=== PATIENT | female | born 1955 | race Caucasian/White ===

== ENCOUNTER 2016-06-11 10:06 | Emergency (ER) | payer OTHER ==
[~2016-06-11] VITALS: Ht 160 cm; Wt 69.0 kg
[~2016-06-11 10:06] MED LIST: MULTCHW27 PO; ZANTTAB9 PO
[2016-06-11 10:07] VITALS: BP 139/69; PULSE 90; RESP 20; TEMP 98; O2SAT 98
[2016-06-11] MEDS ORDERED: SODIUM CHLOR 0.9% 1000 ML INJ 1,000 ML IV SCH (10:37)
[2016-06-11] MEDS ORDERED: ZANT150T2 PO (10:38)
[2016-06-11 10:40] VITALS: RESP 17; O2SAT 99
--- NOTE | 2016-06-11 10:41 | PD ---
HPI Chief Complaint: abdominal pain Time Seen by Provider: 10:29 Travel History International Travel<30 days: No Contact w/Intl Traveler<30days: No Traveled to known affect area: No History of Present Illness HPI The patient is a 61-year-old female who presents emergency department for epigastric abdominal pain. The patient complains of epigastric abdominal pain and occasional abdominal distention that radiates to the back for the last several weeks. However, the patient states her pain never fully dissipates and has been progressing over the last week. The patient was evaluated at [facility] earlier today and referred to the emergency department for further evaluation of possible AAA. The patient does have a history of previous gastritis with several endoscopies performed approximately 10 years ago. The patient was placed on omeprazole and then had her omeprazole doubled at that time, however, her symptoms worsen. The patient was then seen by a general surgeon, Dr. Kwame Chapin, who took her off the map resolved place her on Zantac. The patient states her symptoms resolved after approximately one week, after the medication change. However, the last several weeks she is once again developed epigastric abdominal pain is burning, radiating to the back, occasionally is associated with abdominal distention. She also notes a decreased appetite secondary to the pain. The patient denies any upper chest pain, shortness of breath, nausea, or vomiting. The patient states she walks 5 miles on a treadmill yesterday without any progression of her symptoms and denies any exertional symptoms. The patient states food does not alleviate or exacerbate her symptoms. The patient's primary physician is Dr. Morin. PFSH Past Medical History Asthma: No Blood Disorders: No Anxiety: No Depression: No Heart Rhythm Problems: No Cancer: No Cardiovascular Problems: No High Cholesterol: No Chemotherapy: No Chest Pain: No Congestive Heart Failure: No COPD: No Diabetes: No Endocrine: No Genitourinary: No Hepatitis: No Hiatal Hernia: No Immune Disorder: No Musculoskeletal: No Neurologic: No Psychiatric: No Reproductive: No Respiratory: No Radiation Therapy: No Sleep Apnea: No Thyroid Disease: No Past Surgical History AICD: No Eye Surgery: Yes (BILATERAL CATARACT) Gynecologic Surgery: Yes (CONIZATION OF CERVIX) Joint Replacement: No Pacemaker: No Social History Tobacco Use: No Substance Use: No Allergies-Medications (Allergen,Severity, Reaction): Coded Allergies: Omeprazole (Verified Adverse Reaction, Unknown, ABDOMINAL PAIN, 06/11/16) Reported Meds & Prescriptions Reported Meds & Active Scripts Active Reported Zantac (Ranitidine HCl) 150 Mg Tab 75 Mg PO DAILY Review of Systems Except as stated in HPI: all other systems reviewed are Neg General / Constitutional: No: Fever Cardiovascular: No: Chest Pain or Discomfort, Dyspnea on exertion Respiratory: No: Shortness of Breath Gastrointestinal: Positive: Abdominal Pain, Loss of Appetite, No: Nausea, Vomiting, Diarrhea Musculoskeletal: No: Weakness Physical Exam Narrative GENERAL: Awake, alert, pleasant 81-year-old female who appears her stated age and is in no acute respiratory distress. SKIN: Warm and dry. HEAD: Atraumatic. Normocephalic. EYES: Pupils equal and round. No scleral icterus. No injection or drainage. ENT: No nasal bleeding or discharge. Mucous membranes pink and moist. NECK: Trachea midline. No JVD. CARDIOVASCULAR: Regular rate and rhythm. No murmur appreciated. RESPIRATORY: No accessory muscle use. Clear to auscultation. Breath sounds equal bilaterally. GASTROINTESTINAL: Abdomen soft, tender to palpation epigastrium and right upper quadrant. No rebound tenderness, guarding, or rigidity. MUSCULOSKELETAL: No obvious deformities. No clubbing. No cyanosis. No edema. NEUROLOGICAL: Awake and alert. No obvious cranial nerve deficits. Motor grossly within normal limits. Normal speech. PSYCHIATRIC: Appropriate mood and affect; insight and judgment normal. Data Data Last Documented VS Vital Signs Date Time Temp Pulse Resp B/P Pulse Ox O2 Delivery O2 Flow Rate FiO2 06/11/16 11:50 72 16 133/67 99 Room Air 06/11/16 10:07 98.0 Orders Electrocardiogram (06/11/16 ) Complete Blood Count With Diff (06/11/16 10:37) Comprehensive Metabolic Panel (06/11/16 10:37) Lipase (06/11/16 10:37) Ct Abd/Pel W Iv Contrast(Rout) (06/11/16 10:37) Iv Access Insert/Monitor (06/11/16 10:37) Ecg Monitoring (06/11/16 10:37) Oximetry (06/11/16 10:37) Morphine Inj (Morphine Inj) (06/11/16 10:45) Ondansetron Inj (Zofran Inj) (06/11/16 10:45) Sodium Chlor 0.9% 1000 Ml Inj (Ns 1000 M (06/11/16 10:37) Sodium Chloride 0.9% Flush (Ns Flush) (06/11/16 10:45) Famotidine Inj (Pepcid Inj) (06/11/16 10:45) Troponin I (06/11/16 10:41) Creatine Kinase (Cpk) (06/11/16 10:41) Iohexol 350 Inj (Omnipaque 350 Inj) (06/11/16 13:04) Labs Laboratory Tests Test 06/11/16 10:45 White Blood Count 4.2 TH/MM3 Red Blood Count 4.55 MIL/MM3 Hemoglobin 13.7 GM/DL Hematocrit 41.1 % Mean Corpuscular Volume 90.4 FL Mean Corpuscular Hemoglobin 30.2 PG Mean Corpuscular Hemoglobin 33.4 % Concent Red Cell Distribution Width 14.1 % Platelet Count 166 TH/MM3 Mean Platelet Volume 10.6 FL Neutrophils (%) (Auto) 71.6 % Lymphocytes (%) (Auto) 16.8 % Monocytes (%) (Auto) 10.4 % Eosinophils (%) (Auto) 0.6 % Basophils (%) (Auto) 0.6 % Neutrophils # (Auto) 3.0 TH/MM3 Lymphocytes # (Auto) 0.7 TH/MM3 Monocytes # (Auto) 0.4 TH/MM3 Eosinophils # (Auto) 0.0 TH/MM3 Basophils # (Auto) 0.0 TH/MM3 CBC Comment DIFF FINAL Differential Comment Sodium Level 139 MEQ/L Potassium Level 3.8 MEQ/L Chloride Level 102 MEQ/L Carbon Dioxide Level 28.6 MEQ/L Anion Gap 8 MEQ/L Blood Urea Nitrogen 13 MG/DL Creatinine 0.65 MG/DL Estimat Glomerular Filtration 93 ML/MIN Rate Random Glucose 92 MG/DL Calcium Level 8.9 MG/DL Total Bilirubin 0.3 MG/DL Aspartate Amino Transf 22 U/L (AST/SGOT) Alanine Aminotransferase 21 U/L (ALT/SGPT) Alkaline Phosphatase 79 U/L Total Creatine Kinase 60 U/L Troponin I LESS THAN 0.02 NG/ML Total Protein 7.7 GM/DL Albumin 3.6 GM/DL Lipase 171 U/L [facility] Medical Decision Making Medical Screen Exam Complete: Yes Emergency Medical Condition: Yes Medical Record Reviewed: Yes Interpretation(s) EKG reveals normal sinus rhythm with a rate of 79. No ischemic changes or ectopy noted. Laboratory Tests Test 06/11/16 10:45 White Blood Count 4.2 TH/MM3 Red Blood Count 4.55 MIL/MM3 Hemoglobin 13.7 GM/DL Hematocrit 41.1 % Mean Corpuscular Volume 90.4 FL Mean Corpuscular Hemoglobin 30.2 PG Mean Corpuscular Hemoglobin 33.4 % Concent Red Cell Distribution Width 14.1 % Platelet Count 166 TH/MM3 Mean Platelet Volume 10.6 FL Neutrophils (%) (Auto) 71.6 % Lymphocytes (%) (Auto) 16.8 % Monocytes (%) (Auto) 10.4 % Eosinophils (%) (Auto) 0.6 % Basophils (%) (Auto) 0.6 % Neutrophils # (Auto) 3.0 TH/MM3 Lymphocytes # (Auto) 0.7 TH/MM3 Monocytes # (Auto) 0.4 TH/MM3 Eosinophils # (Auto) 0.0 TH/MM3 Basophils # (Auto) 0.0 TH/MM3 CBC Comment DIFF FINAL Differential Comment Sodium Level 139 MEQ/L Potassium Level 3.8 MEQ/L Chloride Level 102 MEQ/L Carbon Dioxide Level 28.6 MEQ/L Anion Gap 8 MEQ/L Blood Urea Nitrogen 13 MG/DL Creatinine 0.65 MG/DL Estimat Glomerular Filtration 93 ML/MIN Rate Random Glucose 92 MG/DL Calcium Level 8.9 MG/DL Total Bilirubin 0.3 MG/DL Aspartate Amino Transf 22 U/L (AST/SGOT) Alanine Aminotransferase 21 U/L (ALT/SGPT) Alkaline Phosphatase 79 U/L Total Creatine Kinase 60 U/L Troponin I LESS THAN 0.02 NG/ML Total Protein 7.7 GM/DL Albumin 3.6 GM/DL Lipase 171 U/L Last Impressions Abdomen/Pelvis CT 06/11/16 1037 Signed Impressions: Service Date/Time: Saturday, June 11, 2016 12:48 - CONCLUSION: 1. Multiple low-density lesions throughout the liver, likely benign. Outpatient followup MRI recommended. 2. No acute inflammatory process. Fabio Mota MD Differential Diagnosis Differential diagnosis includes cholecystitis, biliary colic, choledocholithiasis, pancreatitis, gastritis, peptic ulcer disease, AAA, atypical chest pain. Narrative Course IV was established, labs were drawn and sent, and the patient was placed on cardiac telemetry monitoring and continuous pulse oximetry monitoring. EKG was ordered and interpreted. CT of the abdomen and pelvis with IV contrast was ordered to evaluate for possible AAA and gallbladder-related pathology. The patient was administered morphine, Pepcid, Zofran, and IV fluids. The patient' s laboratory evaluation including LFTs, BUN/creatinine, and lipase are unremarkable. Hemoglobin is within normal limits. Troponin is CPK are negative. CT reveals lesions in the liver, most likely benign, gallbladder reveals no gallstones or gallbladder wall thickening. No evidence of AAA. The patient had adverse reaction omeprazole, is willing to try Protonix. Therefore , patient was administered 1 dose of Protonix and be discharged home on Protonix. She is advised to follow-up with her adjunct sociology professor for outpatient endoscopy to evaluate for peptic ulcer disease. Patient is also advised she has lesions in the liver may benefit from outpatient MRI. The patient will be provided a copy of her labs and CT at discharge and follow-up with her primary physician. She is advised to return if symptoms worsen or progress. Diagnosis Primary Impression: Epigastric abdominal pain of unknown etiology Patient Instructions: General Instructions Additional Instructions: Protonix as directed. Follow-up with your primary physician. Return if symptoms worsen or progress. Follow-up with your adjunct sociology professor for possible outpatient endoscopy. Please provide the patient a copy of her CT results and lab results at discharge. Med/Other Pt SpecificInfo: Prescription(s) given Scripts Pantoprazole (Protonix)40 Mg Tab40 Mg PO DAILY #30 TAB Ref 0 Prov:Jason Prabhakar MD 06/11/16 Disposition: 01 DISCHARGE HOME Condition: Stable Jason Prabhakar MD Jun 11, 2016 10:41
[2016-06-11] MEDS ORDERED: FAMOTIDINE 20 MG/2 ML VIAL IV PUSH ONE (10:45)
[2016-06-11] MEDS ORDERED: ONDANSETRON HCL 4 MG/2 ML VIAL IVP ONE (10:45)
[2016-06-11] MEDS ORDERED: SODIUM CHLORIDE 0.9% FLUSH 5 ML FLUSH IVF PRN (10:45)
[2016-06-11] MEDS ORDERED: MORPHINE SULFATE 4 MG/ML INJ IV PUSH ONE (10:45)
[2016-06-11 10:50] VITALS: BP 130/63; PULSE 81; RESP 17; O2SAT 99
[2016-06-11 11:05] LABS: BASOPHIL % 0.6 % (0.0-2.0); EOSINOPHIL % 0.6 % (0.0-4.0); HEMATOCRIT 41.1 % (35.0-46.0); HEMO FLAGS DIFF FINAL; LYMPH % 16.8 % (9.0-44.0); LYMPHOCYTE # 0.7 TH/MM3 (1.0-4.8); MEAN CELL VOLUME 90.4 FL (80.0-100.0); MEAN CORPUSCULAR HEMOGLOBIN 30.2 PG (27.0-34.0); MEAN CORPUSCULAR HGB CONC 33.4 % (32.0-36.0); MONO % 10.4 % (0.0-8.0); NEUT % 71.6 % (16.0-70.0); PLATELET COUNT 166 TH/MM3 (150-450); RED BLOOD COUNT 4.55 MIL/MM3 (4.00-5.30); RED CELL DISTRIBUTION WIDTH 14.1 % (11.6-17.2); WHITE BLOOD COUNT 4.2 TH/MM3 (4.0-11.0)
[2016-06-11 11:25] LABS: CREATINE KINASE 60 U/L (26-192)
[2016-06-11 11:50] VITALS: BP 133/67; PULSE 72; RESP 16; O2SAT 99
[2016-06-11 11:53] LABS: ALT (GPT) 21 U/L (10-53); ANION GAP 8 MEQ/L (5-15); AST (GOT) 22 U/L (15-37); BICARBONATE 28.6 MEQ/L (21.0-32.0); BLOOD UREA NITROGEN 13 MG/DL (7-18); CHLORIDE 102 MEQ/L (98-107); GLOMERULAR FILTRATION RATE 93 ML/MIN (>89); POTASSIUM 3.8 MEQ/L (3.5-5.1); SODIUM (NA) 139 MEQ/L (136-145)
[2016-06-11 11:55] LABS: ALKALINE PHOSPHATASE 79 U/L (45-117); TOTAL BILIRUBIN ADULT 0.3 MG/DL (0.2-1.0)
[2016-06-11] MEDS ORDERED: IOHEXOL 350 MG/ML 10 ML VIAL (for RAD DIAG) IV ONE (13:04)
--- NOTE | 2016-06-11 13:15 | RADRPT ---
EXAM DATE/TIME: 06/11/2016 12:48 [facility] COMPARISON: No previous studies available for comparison. INDICATIONS : Epigastric and right upper quadrant pain. IV CONTRAST: 95 cc Omnipaque 350 (iohexol) IV ORAL CONTRAST: No oral contrast ingested. RADIATION DOSE: 7.72 CTDIvol (mGy) MEDICAL HISTORY : None SURGICAL HISTORY : Hysterectomy. ENCOUNTER: Initial ACUITY: 2 days PAIN SCALE: 6/10 LOCATION: Right upper quadrant TECHNIQUE: Volumetric scanning of the abdomen and pelvis was performed. Using automated exposure control and ad justment of the mA and/or kV according to patient size, radiation dose was kept as low as reasonably achievable to obtain optimal diagnostic quality images. FINDINGS: LOWER LUNGS: The visualized lower lungs are clear. LIVER: Homogeneous density without dilation of the biliary tree. No calcified gallstones. Multiple low-dens ity lesions. SPLEEN: Normal size without lesion. PANCREAS: Within normal limits. KIDNEYS: Normal in size and shape. There is no mass, stone or hydronephrosis. ADRENAL GLANDS: Within normal limits. VASCULAR: There is no aortic aneurysm. BOWEL/MESENTERY: The stomach, small bowel, and colon demonstrate no acute abnormality. There is no free intraperitone al air or fluid. ABDOMINAL WALL: Within normal limits. RETROPERITONEUM: There is no lymphadenopathy. BLADDER: No wall thickening or mass. REPRODUCTIVE: Within normal limits. INGUINAL: There is no lymphadenopathy or hernia. MUSCULOSKELETAL: Within normal limits for patient age. CONCLUSION: 1. Multiple low-density lesions throughout the liver, likely benign. Outpatient followup MRI recommen ded. 2. No acute inflammatory process. Fabio Mota MD on June 11, 2016 at 13:12 Board Certified Radiologist. This report was verified electronically.
[2016-06-11] MEDS ORDERED: PROT40TA PO (13:34)
[2016-06-11] MEDS ORDERED: PANTOPRAZOLE SODIUM 40 MG VIAL IV PUSH ONE (13:45)
[2016-06-11 14:40] VITALS: BP 130/76; TEMP 98
--- NOTE | 2016-06-12 13:00 | EKG ---
Date Performed: 06/11/2016 Time Performed: 10:35:33 PTAGE: 61 years EKG: Sinus rhythm POSSIBLE RIGHT VENTRICULAR CONDUCTION DELAY BORDERLINE ECG Compared to prior tracing no significant change PREVIOUS TRACING : 12/17/2012 10.56 DOCTOR: David Garcia Interpretating Date/Time 06/12/2016 12:55:55
== END 2016-06-11 14:40 | disposition home or self-care (01) ==
LOC: NEPC 10:06
DX: R10.13 Epigastric pain (principal)
CPT/HCPCS: 74177; 80053; 82550; 83690; 84484; 85025; 93005; 96361; 96374; 96375; 99284; C9113; J2270; J2405; J7030; Q9967